=== PATIENT | female | born 1995 | race Two or more races ===

== ENCOUNTER 2024-08-27 12:03 | Emergency (ER) | payer OTHER ==
[~2024-08-27] VITALS: Ht 167.6 cm; Wt 81.0 kg
[2024-08-27 12:40] VITALS: BP 172/121; PULSE 127; RESP 18; TEMP 98.6; O2SAT 98
[2024-08-27] MEDS: KETOROLAC TROMETH 60MG/2ML VIAL IM ONE (12:48)
--- NOTE | 2024-08-27 12:48 | ED.PDOC ---
Musculoskeletal HPI Comments A 29 YEAR OLD FEMALE PRESENTS TO THE ED WITH CHIEF COMPLAINT OF FOOT PAIN. PATIENT REPORTS THAT SHE HAS BEEN EXPERIENCING BILATERAL FOOT PAIN WITH ASSOCIATED SWELLING FOR THE PAST 3 DAYS. PATIENT RELAYS THAT SHE IS ON HER FEET ALL DAY AT WORK AND ALSO LIVES ON A SECOND FLOOR, SO SHE NEEDS TO CONSTANTLY GO UP AND DOWN STAIRS. BILATERAL FOOT STARTED 3 DAYS AGO WITH WALKING AND PHYSICAL ACTIVITY. PATIENT DENIES ANY INJURY, FALL, NUMBNESS, OR WEAKNESS. NO OTHER SYMPTOMS REPORTED AT THIS TIME OF CARE. Chief Complaint: Lower Extremity Time Seen by MD: 12:44 Primary Care Provider: NONE Reviewed Notes: Nurses Notes, Medications, Allergies Allergies: Coded Allergies: NO KNOWN ALLERGIES (Unverified , 08/27/24) Information Source: Patient, Emergency Med Personnel Mode of Arrival: EMS Location: Bilateral Extremity Location: Foot Timing: Days Prehospital treatment: None Severity: Moderate Able to Move Extremity: No Bear Weight: Limited Pain: Moderate Mechanism: No Trauma Circumstances: Spontaneous Onset of Symptoms: Spontaneous Symptoms: Swelling, Pain DVT Risk Factors: NONE Last Tetanus: UTD Associated signs and symptoms: Foot pain Past Medical History PAST MEDICAL HISTORY: Denies Surgical History: Denies all surgeries BEARING GRINDER History: No Pertinent BEARING GRINDER History Family History Family History: Reviewed,noncontributory to illness Social History Smoker: Non-Smoker Alcohol: Denies ETOH Use Drugs: Denies Drug Use Lives In: Home Constitutional: denies: chills, diaphoresis, fatigue, fever, malaise, sweats, weakness, others EENTM: denies: blurred vision, double vision, ear bleeding, ear discharge, ear drainage, ear pain, ear ringing, eye pain, eye redness, hearing loss, mouth pain, mouth swelling, nasal discharge, nose bleeding, nose congestion, nose pain, photophobia, tearing, throat pain, throat swelling, voice changes, others Respiratory: denies: cough, hemoptysis, orthopnea, SOB at rest, shortness of breath, SOB with excertion, stridor, wheezing, others Cardiovascular: denies: chest pain, dizzy spells, diaphoresis, Dyspnea on exertion, edema, irregular heart beat, left arm pain, lightheadedness, palpitations, PND, syncope, others Gastrointestinal: denies: abdomen distended, abdominal pain, blood streaked bowels, constipated, diarrhea, dysphagia, difficulty swallowing, hematemesis, melena, nausea, poor appetite, poor fluid intake, rectal bleeding, rectal pain, vomiting, others Genitourinary: denies: abnormal vagina bleeding, burning, dyspareunia, dysuria, flank pain, frequency, hematuria, incontinence, pain, , vagina discharge, urgency, others Neurological: denies: dizziness, fainting, headache, left sided numbness, left sided weakness, numbness, paresthesia, pre-existing deficit, right sided numbness, right sided weakness, seizure, speech problems, tingling, tremors, weakness, others Musculoskeletal: reports: joint pain, muscle pain, others (BILATERAL FOOT PAIN AND SWELLING); denies: back pain, gout, joint swelling, muscle stiffness, neck pain All Other Systems: Reviewed and Negative Physical Exam General Appearance: No Apparent Distress, Normal HEENT: Normal ENT Inspection, PERRL/EOMI Neck: Full Range of Motion, Non-Tender, Normal, Normal Inspection Respiratory: Chest Non-Tender, Lungs Clear, No Accessory Muscle Use, No Respiratory Distress, Normal Breath Sounds Cardiovascular: No Edema, No JVD, No Murmur, No Gallop, Normal Peripheral Pulses, Regular Rate/Rhythm Breast Exam: Deferred Gastrointestinal: No Organomegaly, Non Tender, No Pulsatile Mass, Normal Bowel Sounds, Soft Genitalia: Deferred Pelvic: Deferred Rectal: Deferred Extremities: No calf tenderness, Normal capillary refill, Normal range of motion, No pedal edema, Tender (AND MILD SWELLING ON BILATERAL DORSAL FOOT, NO BONY TENDERNESS AND DEFORMITY. ) Musculoskeletal : Apperance: Normal Neurologic: Alert, superintendent sanitation II-XII nml as Tested, No Motor Deficits, Normal Affect, Normal Mood, No Sensory Deficits Cerebellar Function: Normal Reflexes: Normal Skin: Dry, Normal Color, Warm Peripheral Pulses: 2+ carotid (R), 2+ carotid (L), 2+ dorsalis pedis (R), 2+ dorsalis pedis (L) Lymphatic: No Adenopathy Was a procedure done? Was a procedure done?: No Differential Diagnosis EXT Differential Diagnosis: Sprain, Strain, Arthritis, Bursitis, Other X-Ray, Labs, Meds, VS Vital Signs Date Time Temp Pulse Resp B/P (MAP) Pulse Ox O2 Delivery O2 Flow Rate FiO2 08/27/24 12:40 127 18 98 Room Air 08/27/24 12:40 98.6 124 18 172/121 (138) 98 98.6 08/27/24 12:16 98.6 127 18 172/121 (138) 98 Current Medications Medications (Trade) Dose Ordered Sig/Nakul Route Start Time Stop Time Status Last Admin Ketorolac Tromethamine (Toradol Injection) 60 mg ONCE ONCE IM 08/27/24 12:45 08/27/24 12:46 DC 08/27/24 12:48 PATIENT: GREGORY BARRIOSCCT: [id number]: [id number] : 1995 LOC: ER ROOM / BED: / AGE / SEX: 29 / F ADM STATUS: REG ER SERVICE [id number] ORDERING PHYSICIAN: RANJAN GUADARRAMA PROCEDURE(s): RFOT2 - R FOOT 2 VIEW XRAY REASON: PAIN, NO INJURY ORDER NUMBER(s): [id number], ACCESSION NUMBER(s): [id number] PROCEDURE: Right foot radiographs. INDICATION: PAIN, NO INJURY TECHNIQUE: 2 views of the right foot were obtained. COMPARISON: None FINDINGS: There is no evidence of fracture or dislocation. Joint spaces are maintained. The soft tissues are unremarkable. There is a heel spur. IMPRESSION: 1. No fracture or dislocation. HS:Y ATED BY: PRISCILA ARGUETA MD DICTATED DATE/TIME: 08/27/24 132 SIGNED BY: PRISCILA ARGUETA MD SIGNED DATE/TIME: 08/27/24 1321 CC: X-Ray, Labs, Meds, VS Comment EXTERNAL MEDICAL RECORDS REVIEWED: [NONE] INDEPENDENT HISTORIANS: [NONE] SOCIAL DETERMINANTS OF HEALTH: [NONE] LABS ORDERED: NONE REVIEWED AND INTERPRETED RESULTS: RT AND LT FOOT XR IMAGING ORDERED: RT AND LT FOOT XR TREATMENTS ORDERED: TORADOL 60MG IM PROCEDURES PERFORMED: NONE CRITICAL CARE TIME: NONE I HAVE DISCUSSED THE PATIENT WITH THE ATTENDING PHYSICIAN DR. QIU AND HE AGREES WITH THE PATIENT'S PLAN OF CARE AND DISPOSITION. GIVEN THE HISTORY AND PRESENT ILLNESS OF THE PATIENT, AFTER REVIEWING LABS, IMAGING, AND COURSE OF TREATMENT ADMINISTERED DURING THEIR ED VISIT, THERE IS LOW SUSPICION FOR RED FLAG FINDINGS. BASED ON HISTORY OF PRESENT ILLNESS, AND PHYSICAL EXAM, PATIENT WILL BE DISCHARGED HOME. DISCUSSED PLAN FOR DISCHARGE HOME WITH RX. MEDICATION WARNINGS GIVEN. SHARED DECISION MAKING: DISCUSSED WITH PATIENT THAT THEIR WORKUP WAS NORMAL. PATIENT INSTRUCTED TO FOLLOW UP WITH PRIMARY CARE PROVIDER IN 1-2 DAYS FOR RE- EVALUATION OF SYMPTOMS. PATIENT VERBALIZES UNDERSTANDING TO RETURN TO ED FOR NEW OR WORSENING SYMPTOMS OR IF FOLLOW UP WITH PCP CANNOT BE OBTAINED. PATIENT FEELS COMFORTABLE GOING HOME AT THIS TIME. ALL QUESTIONS ADDRESSED AT TIME OF DISCHARGE. Time of 1ST Reevaluation: 13:33 Reevaluation 1ST: Improved Patient Education/Counseling: Diagnosis, Treatment, Need For Follow Up Family Education/Counseling: Diagnosis, Treatment, No Family Present Medical Screening: No EMC Exist At This Time Departure 1 Departure Time of Disposition: 13:33 Impression: Primary Impression: Foot pain, bilateral Disposition: 01 HOME / SELF CARE / HOMELESS Condition: Stable Additional Instructions: FOLLOW-UP WITH PCP IN 1 TO 2 DAYS. TAKE MEDICATIONS PRESCRIBED. RETURN TO ED FOR ANY NEW OR WORSENING SYMPTOMS. e-Prescriptions Ibuprofen (Ibuprofen) 800 Mg Tab 1 TAB PO TID, #30 TAB Prov: RANJAN GUADARRAMA 08/27/24 Discharged With: Self Critical Care Note Critical Care Time?: No Stability Stability form required: No Heart Score Heart Score: Heart Score Response (Comments) Value History N/A 0 EKG N/A 0 Age N/A 0 Risk Factors N/A 0 Troponin N/A 0 Total 0 I personally scribed for RANJAN GUADARRAMA ([email or web address]) on 08/27/24 at 12:48. Electronically submitted by Robert Olivas ([email or web address]). RANJAN GUADARRAMA Aug 27, 2024 12:48
--- NOTE | 2024-08-27 13:22 | DVH ---
PROCEDURE: Left foot radiographs. INDICATION: PAIN, NO INJURY TECHNIQUE: 2 views of the left foot were obtained. COMPARISON: None FINDINGS: There is no evidence of fracture or dislocation. Joint spaces are maintained. The soft tis sues are unremarkable. There is a heel spur. IMPRESSION: 1. No fracture or dislocation. HS:Y
--- NOTE | 2024-08-27 13:23 | DVH ---
PROCEDURE: Right foot radiographs. INDICATION: PAIN, NO INJURY TECHNIQUE: 2 views of the right foot were obtained. COMPARISON: None FINDINGS: There is no evidence of fracture or dislocation. Joint spaces are maintained. The soft tis sues are unremarkable. There is a heel spur. IMPRESSION: 1. No fracture or dislocation. HS:Y
[2024-08-27] MEDS ORDERED: IBUP-1456 PO (13:34)
== END 2024-08-27 13:38 | disposition home or self-care (01) ==
LOC: ER 12:03 → EDBD 12:03 → ER 13:38
DX: M79.671 Pain in right foot (principal); M79.672 Pain in left foot
CPT/HCPCS: 73620; 96372; 99283; J1885